=== PATIENT | female | born 1935 | race Caucasian/White ===

== ENCOUNTER 2017-02-02 16:55 | Inpatient (IN) | payer MEDICARE, OTHER ==
--- NOTE | ~2017-02-02 | PR ---
[place], [place] PROGRESS NOTE [id number] UNIT #: [id number] ROOM: 310 DOCTOR: RAINE STYLES BIRTHDATE: [birth year] DOS: 02/07/2017 CHIEF COMPLAINT: "Good morning." SUMMARY OF VISIT: The patient was interviewed in the dining room where she was awaiting for breakfast. She engaged readily in conversation, was pleasantly confused. Nurses state that she did well last night that she is very good. No voiced complaints. MENTAL STATUS: She is alert and oriented to person, place, approximate time. No overt signs of auditory or visual hallucinations, delusions, paranoia, brian or hypomania. PLAN: I am going to continue to wean her Xanax. I am going to drop it down to once a day. I pull away on that today. She is on 15 mg of Remeron. Her Exelon was bumped up 2 days ago. We will see how she does with the lower dose of Xanax today if she tolerates that unless likely we will bump up the Exelon tomorrow. Continue to try to engage in individual and de los santos milieu therapy with the plan to discharge once stable. ALBA STYLES CNP CM:PNTRANS [id number] RAINE STYLES 02/07/17 1553 interface
--- NOTE | ~2017-02-02 | PR ---
[place], [place] PROGRESS NOTE [id number] UNIT #: [id number] ROOM: 310 DOCTOR: PAPA MIRANDA MD BIRTHDATE: [birth year] DOS: 02/05/2017 CHIEF COMPLAINT: "My belly hurts. I cannot go on like this. I am so depressed." SUMMARY OF THE VISIT: The patient was interviewed in the dining area. She was sitting waiting for breakfast. As I approached, she looked very distraught and looked like she was on the verge of tears. She once again focused on belly pain and seemed very disturbed by this. Overall, she continues to complain of depression as well and had not slept very well and is not eating extremely well. MENTAL STATUS: She is alert and oriented with some time gaps. Mood does seem to be overwhelmingly depressed and despondent. Affect is flat, blunted with a constricted range, but she is also on the verge of tears. She is also somewhat anxious and fretful and very somatically preoccupied. There is no brian or hypomania. There are no psychotic symptoms present. PLAN: I will continue my titration downward of the Xanax bringing it from 0.25 mg 3 times a day down to twice a day with the ultimate goal to eliminate this medication completely. I will increase her Exelon patch from 4.6 to 9.5 mg a day to further improve and maintain ADLs, behavior and cognition. Given the fact that sleep and appetite are problematic and she has a great deal of GI distress. I will discontinue Trintellix in lieu of Remeron 15 mg at bedtime. The Remeron will rapidly aid sleep and improve appetite, plus its serotonergic effects will decrease GI cramping and also it decrease GI motility and spasms. We will continue to monitor and support, engage in individual and de los santos milieu activity, returning to [facility] once stable. PAPA MIRANDA MD CM:PNTRANS 9 2 PAPA MIRANDA MD 02/05/17832 interface
--- NOTE | ~2017-02-02 | PR ---
[place], [place] PROGRESS NOTE [facility] [id number] UNIT #: [id number] ROOM: 310 DOCTOR: RAINE STYLES BIRTHDATE: [birth year] DOS: 02/04/2017 CHIEF COMPLAINT: "Good morning." SUMMARY OF VISIT: The patient was assessed in her room where she was getting ready for the morning. She engaged in minimal conversation, stated that she felt that she slept fairly good last night. MENTAL STATUS: She is alert and oriented to person, place, approximate to time. Mood does seem a little bit depressed. Affect is still flat and blunted. It should be noted that reviewing her labs, it does appear that the patient does have significant urinary tract infection and those labs came back yesterday, looks like the hospitalist did start her on an antibiotic yesterday afternoon. This may be contributing to her not feeling well and being off. She did have some somatic complaints, but otherwise fairly stable. PLAN: Her medications were adjusted yesterday. She is currently started on Exelon and Trintellix and the antibiotic. I ____ antibiotic another 24 hours to kick in and see if this helps clear up some of the issues and then we can continue to adjust the psychiatric meds from there. We will try to engage in individual and de los santos milieu therapy with plan to discharge once stable. ALBA STYLES CNP CM:PNTRANS [id number] RAINE STYLES 02/04/17 1006 interface
--- NOTE | ~2017-02-02 | PR ---
[place], [place] PROGRESS NOTE [id number] UNIT #: [id number] ROOM: 310 DOCTOR: PAPA MIRANDA MD BIRTHDATE: [birth year] DOS: 02/09/2017 INTERVAL NOTE CHIEF COMPLAINT: "I think I feel better." SUMMARY OF THE VISIT: The patient was interviewed in the dining area. She smiled on approach and immediately said "I feel better with that new medicine." She seems less anxious when I did monitor her as I was seeing other patients. She was not breathing as heavily, she did not appear short of breath and she seemed much more relax. Certainly, adding the Klonopin seems to be a positive move. MENTAL STATUS: She is alert and oriented with time gaps. Mood does seem to be more euthymic and less anxious. She is less fretful and somatic. There is no hypomania or brian. There are no overt auditory or visual hallucinations. She does process slowly some of this is because she is hard of hearing. Memory has gaps especially for short term events. PLAN: I will renew the Ativan in case she requires it. At this point, maintain the Klonopin at its current dose given the fact that there has been some benefit already. We will monitor and support returning back to [facility] when stable. PAPA MIRANDA MD CM:PNTRANS [id number] PAPA MIRANDA MD 02/09/17 1424 interface
--- NOTE | ~2017-02-02 | PR ---
[place], [place] PROGRESS NOTE [facility] [id number] UNIT #: [id number] ROOM: 310 DOCTOR: RAINE STYLES BIRTHDATE: [birth year] DOS: 02/06/2017 CHIEF COMPLAINT: "Good morning." SUMMARY OF VISIT: The patient was interviewed in the dining room where she was sitting after breakfast. She engaged in conversation, was pleasantly confused. No issues per nursing overall last night. She was suffering over the last several days with some diarrhea and gas. Further evaluation by the nurses through her previous chart showed that she does have a history of IBS. She does have p.r.n. Bentyl available. They did give her Bentyl last night, which seemed to resolve her discomfort. MENTAL STATUS: She is alert and oriented to person and place, I do not know about time. Mood trending more towards euthymic. Affect a little bit more pleasant, there is still some flat and blunted, but she had moments where she smiled and engaged in a pleasant conversation. PLAN: She seems to be tolerating the decrease in the Xanax. It looks like the goal is eventually to wean this away completely. For the increase in the Exelon patch, did well. She had no side effects, she is tolerating it quite well. We got rid of the Trintellix, and Remeron was added and this seems to have helped her nighttime sleep as well. I did encourage nursing to pass on regarding her diagnosis of IBS and I talked to the patient about telling the nurses when she has diarrhea and gas, so they know to give her, her p.r.n. Bentyl. Plan is to stabilize her and return her back to [facility] once stable. ALBA STYLES CNP CM:PNTRANS 1515 RAINE STYLES 02/06/17 1515 interface
--- NOTE | ~2017-02-02 | DS ---
[place], [place] DISCHARGE SUMMARY NAME: NEGAR WOOD [facility] #: [id number] UNIT #: [id number] ROOM: 310 DOCTOR: RAINE STYLES BIRTHDATE: [birth year] DOS: 02/11/2017 HISTORY OF PRESENT ILLNESS: This is an 81-year-old female who is a resident of [facility], presents here after holding a knife to her throat and stating that she was going to kill herself. She has bouts of depression on and off for the last several months, but it has been suddenly getting worse over the last several weeks. She has voiced positive suicidal ideation with the plan and states that if things are not getting any better, she will end it all. The patient is not eating or sleeping. She is a plethora of somatic complaints and tends to jump from one somatic issue to another. Her current psychotropic regimen was ineffective to combat her depression, and she was admitted to rule out organic factors and stabilize on medication. PAST MEDICAL HISTORY: Remarkable for dementia, depression, diabetes, hypertension, GERD, hyperlipidemia, irritable bowel syndrome, normocytic anemia, peptic ulcer disease, peripheral vascular disease. DIAGNOSES: AXIS I: Major depression, recurrent; severe Alzheimer dementia. HOSPITAL COURSE: We discontinued her Cymbalta in lieu of Trintellix. We steadily increased it. She did not seem to responded very well to that. We added Remeron 15 mg at bedtime to help with depression, help get her to sleep and stimulate her appetite, 15 mg is the best dose of this medication to stimulate appetite, induce sleeping, and still combat depression. She was found to be severely vitamin D deficient, so she was started on 50,000 international units of vitamin D every week. We started her on the Exelon patch. She is currently at 4.6 mg every day. We titrated it up to 9.5, goal would be to eventually get her to 13.3 mg every day. Eventually overtime, we were able to taper off her Xanax, and we started her with Klonopin instead more of a moderate acting benzos 0.5 mg t.i.d. This helped with her mood lability, kept the edge off, but did not cause increased sedation. Overall, she seemed to respond better to this. MENTAL STATUS: The patient is alert and oriented to person, place, I do not believe time. There are no overt signs of auditory or visual hallucinations, delusions, paranoia, brian or hypomania. Sleep is good. Appetite is excellent. PLAN: The patient is being discharged back to [facility] in stable condition. She will be on the following medications: Klonopin 0.5 mg t.i.d. for anxiety and mood lability, Remeron 15 mg at bedtime, Exelon patch 9.5 mg q.a.m. with a goal to titrate up over the next couple of weeks to 13.3 mg every day for the maximum dose. Also need to make sure that she continues on her Bentyl, this is effective for some of the abdominal pains and gas that she was having. A lot of her anxiety was fixated in this area with her somatic symptoms, so we will continue with the Bentyl, and the patient is being discharged in stable condition. [place], [place] DISCHARGE SUMMARY [facility]: [id number] UNIT #: [id number] ROOM: 310 DOCTOR: RAINE STYLES BIRTHDATE: [birth year] ALBA STYLES CNP CM:LLOYD 8 8 RAINE STYLES 02/11/1749 interface
--- NOTE | ~2017-02-02 | PR ---
[place], [place] PROGRESS NOTE [facility] [id number] UNIT #: [id number] ROOM: 310 DOCTOR: PAPA MIRANDA MD BIRTHDATE: [birth year] DOS: 02/08/2017 CHIEF COMPLAINT: "I am so anxious and my stomach is bothering me, but I think it is ." SUMMARY OF THE VISIT: The patient was interviewed in the dining area. She appeared somewhat short of breath and when I asked her about that, she denied feeling short of breath, but instead reported she feels very anxious, and her stomach is bothering her, which she also relates to the anxiety. She reports that the anxiety level is constant, but there are times when it seems to maximize throughout the day. There are no specific triggers it comes all by itself. She does appear somewhat distraught even when I was talking to other patients. She had a very distraught and anxious look about her. MENTAL STATUS: She is alert and oriented with some time gaps. Mood does seem to be more euthymic, but she does have been exceptionally high anxiety level and seems very fretful. There is no hypomania or brian. There are no overt auditory or visual hallucinations. No delusions, no paranoia. Short term memory has gaps, otherwise she is intact. PLAN: I will finally discontinue the Xanax, renew the Ativan in case she requires it. Given the fact that this anxiety seems to be persistent day to day here, I will go ahead and order her Klonopin 0.5 mg 3 times daily to try to get ahead of the anxiety. I would prefer the Klonopin over short acting benzodiazepine anyway as it should sustain her more consistently throughout the day. We will monitor for risk, benefits. Engage in individual and de los santos milieu activity with the ultimate plan then to return to the least restrictive environment when psychiatrically stable. PAPA MIRANDA MD CM:PNTRANS [id number] PAPA MIRANDA MD 02/09/17 0012 interface
--- NOTE | ~2017-02-02 | PR ---
[place], [place] PROGRESS NOTE [id number] UNIT #: [id number] ROOM: 310 DOCTOR: RAINE STYLES BIRTHDATE: [birth year] DOS: 02/10/2017 CHIEF COMPLAINT: "Good morning." SUMMARY OF VISIT: The patient was assessed in the dining area where she was finishing up breakfast. She engaged in minimal conversation, but was pleasant. Nurses did note that they observed her crying about 1:00 a.m., this morning complaining of gas. She was given one of her p.r.n. Bentyl, it worked effectively and patient was immediately back to sleep. MENTAL STATUS: Alert and oriented to person, place, I do not think time. Mood is trending towards euthymic. No anxious overtones noted. No auditory or visual hallucinations, delusions, paranoia, brian, or hypermania. PLAN: I am going to continue with the current psychotropics as is. We do need to make sure we advise Keyser when she is discharged about the p.r.n. Bentyl and how effective it is, this seems to be cause of a lot of the patient's ____ anxiety and fixation. We will continue to try to engage in individual and de los santos milieu therapy. We will look to discharge her as soon as tomorrow. ALBA STYLES CNP CM:PNFELY [id number] RAINE STYLES 02/11/17 0150 interface
--- NOTE | ~2017-02-02 | WRIGHTHP ---
[place], [place] PATIENT HISTORY AND PHYSICAL EXAM [facility] [id number] UNIT #: [id number] ROOM: 310 DOCTOR: PAPA MIRANDA MD BIRTHDATE: [birth year] DOS: 02/03/2017 CHIEF COMPLAINT: "I just wasn't feeling good, something has to be done. I got so depressed." HISTORY OF PRESENT ILLNESS: This is an 81-year-old white female who is a resident of [facility]. She presents after holding a knife to her throat stating that she was going to kill herself. The patient apparently has battled depression on and off for the last several months, but it has been steadily worsening in the last several weeks. She has voiced a positive suicidal ideation with the plan and states if things do not start getting better, she will end it all. The patient has not been eating or sleeping well. She offers a plethora of somatic complaints and tends to jump from one somatic issue to another. The patient's current psychotropic regimen has been ineffective at combat her depression. She is admitted now to rule out organicity stabilize on medication, engage in individual and de los santos milieu activity. PAST MEDICAL HISTORY: Remarkable for depression, dementia, diabetes, hypertension, GERD, hyperlipidemia, irritable bowel syndrome, normocytic anemia, peptic ulcer disease, peripheral vascular disease. MENTAL STATUS: The patient is alert and oriented to person, place. Mood is overwhelmingly depressed. Affect is flat and blunted. Affective range is constricted. Some of this is due to her being rather hard of hearing, so her speech does tend to be somewhat mildly garbled. She endorses multiple neurovegetative symptoms as well as endorsing fleeting suicidal thoughts. There is no hypomania or brian. There are no overt auditory or visual hallucinations. No delusions are present. Short term memory is poor, intermediate and long-term are intact. DIAGNOSES: Major depression, recurrent, severe, and Alzheimer dementia. PLAN: I have already discontinued her Cymbalta in lieu of Trintellix, which I will increase from 10 to 20 mg a day. Screening examination show her to have a low vitamin D level. I will start vitamin D 50,000 international units weekly. I will also start Exelon patch 4.6 mg daily and begin to taper her Xanax as I think this could be worsening her confusion as well. We will engage in individual and de los santos milieu activity with the plan to return to [place] when stable. [place], [place] PATIENT HISTORY AND PHYSICAL EXAM NAME: NEGAR WOOD UNIT #: [id number] ROOM: 310 DOCTOR: PAPA MIRANDA MD BIRTHDATE: [birth year] PAPA MIRANDA MD CM:HISPHYS:PATIENT HISTORY AND PHYSICAL EXAMINATION 2 PAPA MIRANDA MD 02/03/17 0853 interface
[2017-02-02] MEDS ORDERED: CARAFATE1 G1 PO (17:13)
[2017-02-02] MEDS ORDERED: OMEPRAZOLE D/R20 MG PO (17:14)
[2017-02-02] MEDS ORDERED: CYMBALTA60 MG PO (17:15)
[2017-02-02] MEDS ORDERED: ACIDOPHILUS LA1 EACH PO (17:17)
[2017-02-02] MEDS ORDERED: LACTULOSE20 GM/30 M PO (17:18)
[2017-02-02] MEDS ORDERED: LOPRESSOR25 MG PO (17:20)
[2017-02-02] MEDS ORDERED: XANAX0.5 MG PO (17:22)
[2017-02-02] MEDS ORDERED: ICAPS PO (17:28)
[2017-02-02] MEDS ORDERED: BENTYL10 MG PO (17:30)
[2017-02-02] MEDS ORDERED: ANTACID M LIQU355 ML PO (17:35)
[2017-02-02] MEDS ORDERED: IBGARD90 MG PO (17:37)
[2017-02-02] MEDS ORDERED: TYLENOL325 M1 PO (17:38)
[2017-02-02] MEDS ORDERED: PHENERGAN25 MG/1 ML IJ (17:38)
[2017-02-02] MEDS ORDERED: DULCOLAX10 M1 RC (17:39)
[2017-02-02] MEDS ORDERED: FLEET ADULT ENEM1 EA R (17:41)
[2017-02-02] MEDS ORDERED: MILK OF MA400 MG/5 M PO (17:42)
[2017-02-02 18:22] VITALS: BP 186/72; BP 186/76
[2017-02-02] MEDS ORDERED: LANTUS SOLOS100 U/M1 SC (18:23)
[2017-02-02] MEDS ORDERED: NOVOLOG MI100 UNIT/1 SC (18:25)
[2017-02-02] MEDS ORDERED: NOVOLOG FLEX100 U/ML SC (18:30)
[2017-02-02 20:09] VITALS: BP 180/82
[2017-02-03 06:48] LABS: BASO % 0.5 % (0.0-1.0); EOS # 0.4 10*3/uL (0.0-0.4); EOS % 4.2 % (1.0-4.0); HEMATOCRIT 46.1 % (37.0-47.0); HEMOGLOBIN 15.2 g/dl (12.0-16.0); LYMPH # 1.5 10*3/uL (1.3-4.4); LYMPH % 17.3 % (27.0-41.0); MEAN CELL VOLUME 92.2 fl (81.0-99.0); MEAN CORPUSCULAR HGB 30.4 pg (27.0-31.0); MEAN PLATELET VOLUME 10.4 fl (9.6-12.3); MONO # 0.8 10*3/uL (0.1-1.0); MONO % 9.2 % (3.0-9.0); NEUT # 5.9 10*3/uL (2.3-7.9); NEUT % 68.6 % (47.0-73.0); PLATELET COUNT AUTOMATED 245 10*3/uL (130-400); RED CELL DISTRI WIDTH 12.5 % (0-14.5); WHITE BLOOD COUNT 8.6 10*3/uL (4.8-10.8)
[2017-02-03 07:17] LABS: ALBUMIN 3.2 gm/dl (3.1-4.5); ALKALINE PHOSPHATASE 105 U/L (45-117); BILIRUBIN, TOTAL 0.6 mg/dl (0.2-1.0); BUN 16 mg/dl (7-24); CARBON DIOXIDE 29 mmol/L (21-32); CHLORIDE 106 mmol/L (98-107); CHOLESTEROL 161 mg/dL (<200); EST GLOM FILT AFRICAN AMERICAN > 60 ml/min; GLUCOSE 84 mg/dL (65-99); HDL CHOLESTEROL 41 mg/dl (40-60); LDL CHOLESTEROL 75 mg/dL (9-159); POTASSIUM 3.7 mmol/L (3.5-5.1); SGOT/AST 11 IU/L (3-35); SGPT/ALT 12 U/L (12-78); SODIUM 144 mmol/L (136-145); TOTAL PROTEIN 7.4 gm/dL (6.4-8.2); TRIGLYCERIDES 225 mg/dl (<150); VLDL CHOLESTEROL 45 mg/dL (6-40)
[2017-02-03 07:23] LABS: THYROID STIM HORMONE (HS) 0.529 uIU/ml (0.358-4.75)
[2017-02-03 07:40] LABS: BILIRUBIN NEGATIVE (NEGATIVE); BLOOD 1+ (NEGATIVE); CLARITY CLOUDY (CLEAR); COLOR YELLOW (YELLOW); GLUCOSE NEGATIVE (NEGATIVE); KETONE NEGATIVE (NEGATIVE); LEUKO ESTERASE 3+ (NEGATIVE); NITRITE POSITIVE (NEGATIVE); PH 5.5 (5.0-9.0); PROTEIN NEGATIVE (NEGATIVE); UROBILINOGEN 0.2 E.U./dl (0.2-1.0)
[2017-02-03 07:50] VITALS: BP 162/78
[2017-02-03 07:55] LABS: URINE REFLEX COMMENT YES (NO); WBC TNTC wbc/hpf (0-5)
[2017-02-03 08:08] LABS: VITAMIN D, 25-HYDROXY 19.7 ng/mL (30-100)
[2017-02-03 08:47] LABS: HEMOGLOBIN A1c 7.8 % (4.8-5.6)
[2017-02-03 20:06] VITALS: BP 125/52
[2017-02-04 08:00] VITALS: BP 158/70
[2017-02-04 20:04] VITALS: BP 125/52; BP 142/74
[2017-02-05 08:00] VITALS: BP 147/62
[2017-02-05 19:48] VITALS: BP 146/66
[2017-02-06 07:56] VITALS: BP 151/57
[2017-02-06 19:43] VITALS: BP 148/62
[2017-02-07 07:41] VITALS: BP 144/55
[2017-02-07 19:48] VITALS: BP 145/54
[2017-02-08 07:15] VITALS: BP 118/60
[2017-02-08 19:42] VITALS: BP 122/62
[2017-02-09 07:00] VITALS: BP 118/73
[2017-02-09 20:10] VITALS: BP 114/68
[2017-02-10 07:45] VITALS: BP 140/68
[2017-02-10 19:43] VITALS: BP 159/62
[2017-02-11 07:47] VITALS: BP 126/65
[2017-02-11] MEDS ORDERED: VITAMIN D50000 I3 PO (08:06)
[2017-02-11] MEDS ORDERED: CLONAZEPAM1 MG PO (08:06)
[2017-02-11] MEDS ORDERED: RIVASTIGMINE1 EAC1 T (08:06)
[2017-02-11] MEDS ORDERED: MIRTAZAPINE15 M2 PO (08:06)
[2017-02-11] MEDS ORDERED: LISINOPRIL10 M1 PO (09:39)
== END 2017-02-11 11:17 | disposition other institution (70) | DRG 885 ==
LOC: 3N 16:55
PROVIDERS: Psychiatry & Neurology Psychiatry
DX: F33.2 Major depressive disorder, recurrent severe without psychotic features (principal); E11.42 Type 2 diabetes mellitus with diabetic polyneuropathy; E11.51 Type 2 diabetes mellitus with diabetic peripheral angiopathy without gangrene; G30.9 Alzheimer's disease, unspecified; F02.80 Dementia in other diseases classified elsewhere, unspecified severity, without behavioral disturbance, psychotic disturbance, mood disturbance, and anxiety; E78.5 Hyperlipidemia, unspecified; F41.9 Anxiety disorder, unspecified; K21.9 Gastro-esophageal reflux disease without esophagitis; K27.9 Peptic ulcer, site unspecified, unspecified as acute or chronic, without hemorrhage or perforation; K58.1 Irritable bowel syndrome with constipation; K64.9 Unspecified hemorrhoids; Z84.89 Family history of other specified conditions; Z79.4 Long term (current) use of insulin; Z79.899 Other long term (current) drug therapy